=== PATIENT | male | born 1995 | race Caucasian/White ===

== ENCOUNTER 2020-08-30 02:30 | Emergency (ER) | payer OTHER ==
[~2020-08-30] VITALS: Ht 172.7 cm; Wt 101.5 kg
--- NOTE | 2020-08-30 02:34 | PHYS DOC ---
Past History Past Medical History Compartment syndrome Lt ankle age 17- post fx General Adult HPI: HPI: ".. I woke up with this severe pain... down here on the right... I felt like i wanted to vomit.. but didnt.. It comes on in waves.. " Patient is a 25 year old male who presents with above hx and complaints of Rt. lower quadrant abdomen pailn and nausea. Pt. seen on arrival. Patient has not had pain like this before. Pain seems to come in waves and radiates to his right testicle area. Pain 8-10/10. No history of trauma. No history of fever or chills. No history of bad food. Did eat Ramen noodles before he went to bed at approximately 2300 hrs. Did have normal stool yesterday. Patient normally healthy. No history of abdomen surgeries. No history of dark or tarry stools. Has had some constipation. 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 Patient has had no recent travel. Has had no specific ill contacts. No history immuno suppression. No history of STDs. No history of dysuria. No history of localized muscular pain or trauma. Has had 7 lifetime sexual partners. No recent sexual partners last couple years. There is a family history of kidney stones with his mother who is a nurse. Mother had her lst kidney stone at age 26. There is a family history of diabetes and alcohol abuse with his father.. There is family history of cancer. Pt. does not smoke our use drugs. Review of Systems: Review of Systems: Constitutional: Denies fever or chills Eyes: Denies change in visual acuity HENT: Denies nasal congestion or sore throat Respiratory: Denies cough or shortness of breath Cardiovascular: Denies chest pain or edema GI: Complains of severe right lower quadrant abdominal pain, nausea,. Denies vomiting, bloody stools or diarrhea : Denies dysuria Musculoskeletal: Denies back pain or joint pain Integument: Denies rash Neurologic: Denies headache, focal weakness or sensory changes Endocrine: Denies polyuria or polydipsia Lymphatic: Denies swollen glands Psychiatric: Denies depression or anxiety Family History: Family History: Kidney stones x3 on mother, history of alcohol abuse and diabetes with father. Current Medications: Current Meds: See nursing for home meds Allergies: Allergies: No known drug allergies. Physical Exam: PE: Constitutional: Well developed, well nourished, in acute distress, non-toxic appearance. [] HENT: Normocephalic, atraumatic, bilateral external ears normal, oropharynx moist, no oral exudates, nose normal. [] Eyes: PERRLA, EOMI, conjunctiva normal, no discharge. [] Neck: Normal range of motion, no tenderness, supple, no stridor. [] Cardiovascular: Tachycardia heart rate regular rhythm, no murmur [] Lungs & Thorax: Bilateral breath sounds equal apex on auscultation [] Abdomen: Bowel sounds decreased, soft, right lower quadrant abdomen tenderness, no masses, no pulsatile masses. Rebound to right lower quadrant abdomen. Circumcised male. Testicles nontender. Skin: Warm, dry, no erythema, no rash. Multiple tattoos. Back: No tenderness, some right flank CVA tenderness on percussion radiates to Rt. lower quadrant. Extremities: No tenderness, no cyanosis, no clubbing, ROM intact, no edema. [] Does have a psoas sign on right with movement and heel tap. Deformed Lt. ankle old fx and hx compartment syndrome. Neurologic: Alert and oriented X 3, normal motor function, normal sensory function, no focal deficits noted. [] Psychologic: Affect anxious, judgement normal, mood normal. [] EKG: EKG: My interpretation of EKG -sinus rhythm at 88 bpm. No acute morphology [] Radiology/Procedures: Radiology/Procedures: [[address] [address] IMAGING REPORT Signed PATIENT: KATY CHAMORRO ACCOUNT: [id number] : 1995 LOCATION: ER AGE: 25 SEX: M EXAM STATUS: REG ER ORD. PHYSICIAN: ZAYRA BAZAN MD REASON: Rt. lower abd. pain. PROCEDURE: CT ABDOMEN PELVIS WO CONTRAST CT scan abdomen and pelvis without contrast 08/30/2020 CLINICAL HISTORY: Right-sided abdominal pain. TECHNIQUE: Unenhanced, contiguous, 3 mm axial sections were obtained to the abdomen and pelvis. One or more of the following individualized dose reduction techniques were utilized for this study: 1. Automated exposure control. 2. Adjustment of the mA and/or kV according to patient size. 3. Use of iterative reconstruction technique. FINDINGS: Images through the lung bases are within normal limits. The liver, spleen, pancreas, adrenal glands and kidneys are within normal limits. The abdominal aorta tapers normally. The gallbladder is well-distended. No free fluid or free air is seen within the abdomen. Air and stool are seen throughout the colon. There is no evidence of bowel obstruction. The appendix is dilated measuring 9 mm in thickness. It has a thickened wall. Increased density is seen within the adjacent fat. These findings are consistent with acute appendicitis. No abnormal fluid collection is seen to suggest evidence of an abscess. Images through the pelvis demonstrate the urinary bladder distended with urine. A minimal amount of free fluid is seen within the pelvis. No abnormal fluid collection is seen. Minimal S-shaped curvature of the thoracolumbar spine is noted. IMPRESSION: Findings are seen consistent with acute appendicitis. Electronically signed by: Myles Webb MD (08/30/2020 4:12 AM) [id number] DICTATED AND SIGNED BY: MYLES WEBB MD DATE: 08/30/20407 CC: ZAYRA BAZAN MD; PCP,NO ~MTH0 0 ][place] [address] IMAGING REPORT Signed PATIENT: KATY CHAMORRO ACCOUNT: [id number] : 1995 LOCATION: ER AGE: 25 SEX: M EXAM STATUS: REG ER ORD. PHYSICIAN: ZAYRA BAZAN MD REASON: pain PROCEDURE: ACUTE ABDOMEN SERIES Acute abdominal series to include a PA chest radiograph 08/30/2020 Clinical History: Abdominal pain. A PA digital radiograph of the chest was obtained. Supine and erect AP digital radiographs of the abdomen/pelvis were obtained. No previous studies are available for comparison. The cardiac and mediastinal silhouettes are within normal limits in size and configuration. No pulmonary infiltrate is seen. No pleural effusion or pneumothorax is noted. The abdominal bowel gas pattern is nonobstructive. There is no evidence of free air. No radiopaque calculus is seen. The osseous structures are grossly intact. Impression: Nonobstructive bowel gas pattern. Electronically signed by: Myles Webb MD (08/30/2020 3:52 AM) [id number] DICTATED AND SIGNED BY: MYLES WEBB MD DATE: 08/30/20 035 CC: ZAYRA BAZAN MD; PCP,NO ~MTH0 0 Heart Score: HEART Score for Chest Pain: HEART Score for Chest Pain Response (Comments) Value History Slighlty/Non-Suspicious 0 ECG Normal 0 Age < 45 0 Risk Factors No Risk Factors 0 Total 0 Risk Factors: Risk Factors: DM, Current or recent (<one month) smoker, HTN, HLP, family history of CAD, obesity. Risk Scores: Score 0 - 3: 2.5% MACE over next 6 weeks - Discharge Home Score 4 - 6: 20.3% MACE over next 6 weeks - Admit for Clinical Observation Score 7 - 10: 72.7% MACE over next 6 weeks - Early Invasive Strategies Course & Med Decision Making: Course & Med Decision Making Pertinent Labs and Imaging studies reviewed. (See chart for details) Patient advised his medical condition can be discussed with his mother. [phone]. Pt. refusing narcotics for pain. Pt. report complete relief of pain after fluids and toradol. 350hrs. Pt. return of pain at 4:20 hrs. rates 5/10. Will take Morphine now. Discussed presentation, testing and tx plan with Dr. Ribeiro and Dr. Mills. Dr. Ribeiro - accepting. Dr. Mills consult. Pt. to go to room # 426 [facility]. COVID tested order for surgery- lab notification.. Nursing at [facility] advised not to collect at our institution, they will collect it at [facility]. Impression: 1. Abdomen Pain 2. Mild Leukocytosis 11.9 3. Acute Appendicitis [] Dragon Disclaimer: Dragon Disclaimer: This electronic medical record was generated, in whole or in part, using a voice recognition dictation system. Departure Departure: Referrals: PCP,ASHLEY (PCP) [place] Disclaimer This chart was dictated in whole or in part using Voice Recognition software in a busy, high-work load, and often noisy Emergency Department environment. It may contain unintended and wholly unrecognized errors or omissions. ZAYRA BAZAN MD Aug 30, 2020 02:34
[2020-08-30] MEDS ORDERED: FAMOTIDINE 20 MG/2 ML VIAL IVP ONE (03:00)
[2020-08-30] MEDS ORDERED: ONDANSETRON PF 4 MG/2 ML VIAL. IVP ONE (03:00)
[2020-08-30] MEDS ORDERED: IV RINGERS SOLUTION,LACTATED 1,000 ML IV SCH (03:00)
[2020-08-30] MEDS ORDERED: KETOROLAC 30 MG/ML VIAL. IVP ONE (03:00)
[2020-08-30 03:09] LABS: BASO % 0 % (0-3); EOS % 0 % (0-3); HEMATOCRIT 45.8 % (39.0-53.0); LYMPH # 0.9 x10^3/uL (1.0-4.8); LYMPH % 8 % (24-48); MEAN CORPUSCULAR HEMOGLOBIN 25 pg (25-35); MEAN CORPUSCULAR HGB CONC 33 g/dL (31-37); MEAN CORPUSCULAR VOLUME 77 fL (79-100); MONO # 0.1 x10^3/uL (0.0-1.1); MONO % 1 % (0-9); NEUT # 10.7 x10^3uL (1.8-7.7); NEUT % 90 % (31-73); PLATELET COUNT 241 x10^3/uL (140-400); RED BLOOD COUNT 5.93 x10^6/uL (4.30-5.70); RED CELL DISTRIBUTION WIDTH 13.3 % (11.5-14.5); WHITE BLOOD COUNT 11.9 x10^3/uL (4.0-11.0)
[2020-08-30 03:21] LABS: BACTERIA,URINE 0 /HPF (0-FEW); BILIRUBIN,URINE NEG (NEG); CLARITY,URINE CLEAR; COLOR,URINE YELLOW; GLUCOSE,URINE NEG (NEG); NITRITE,URINE NEG (NEG); RBC,URINE RARE /HPF (0-2); SQUAMOUS EPITHELIAL CELL,UR OCC /LPF; UROBILINOGEN,URINE 0.2 mg/dL (0.2 mg/dL); WBC,URINE RARE /HPF (0-4)
[2020-08-30 03:21] LABS: CALCIUM 8.9 mg/dL (8.5-10.1); CREATININE 1.1 mg/dL (0.7-1.3); GFR 81.6; POTASSIUM 3.6 mmol/L (3.5-5.1)
[2020-08-30 03:22] LABS: BARBITURATES NEG (NEG); BENZODIAZEPINES NEG (NEG); CANNABINOIDS NEG (NEG); COCAINE NEG (NEG); METHADONE NEG (NEG); OPIATES NEG (NEG); PHENCYCLIDINE NEG (NEG)
[2020-08-30 03:24] LABS: AMPHETAMINE/METHAMPHETAMINE NEG (NEG)
[2020-08-30 03:27] LABS: ALBUMIN 3.9 g/dL (3.4-5.0); DIRECT BILIRUBIN 0.2 mg/dL (0.0-0.2); TOTAL BILIRUBIN 0.6 mg/dL (0.2-1.0); TOTAL PROTEIN 7.9 g/dL (6.4-8.2)
--- NOTE | 2020-08-30 03:54 | RAD ---
Acute abdominal series to include a PA chest radiograph 08/30/2020 Clinical History: Abdominal pain. A PA digital radiograph of the chest was obtained. Supine and erect AP digital radiographs of the abd omen/pelvis were obtained. No previous studies are available for comparison. The cardiac and mediastinal silhouettes are within normal limits in size and configuration. No pulmon yadi infiltrate is seen. No pleural effusion or pneumothorax is noted. The abdominal bowel gas pattern is nonobstructive. There is no evidence of free air. No radiopaque ca lculus is seen. The osseous structures are grossly intact. Impression: Nonobstructive bowel gas pattern. Electronically signed by: Myles Webb MD (08/30/2020 3:52 AM) [id number]
[2020-08-30] MEDS ORDERED: IV NORMAL SALINE 50ML 50 ML ONE (04:15)
[2020-08-30] MEDS ORDERED: cefTRIAXone SODIUM 1 GM VIAL ONE (04:15)
--- NOTE | 2020-08-30 04:15 | RAD ---
CT scan abdomen and pelvis without contrast 08/30/2020 CLINICAL HISTORY: Right-sided abdominal pain. TECHNIQUE: Unenhanced, contiguous, 3 mm axial sections were obtained to the abdomen and pelvis. One or more of the following individualized dose reduction techniques were utilized for this study: 1. Automated exposure control. 2. Adjustment of the mA and/or kV according to patient size. 3. Use of iterative reconstruction technique. FINDINGS: Images through the lung bases are within normal limits. The liver, spleen, pancreas, adrenal glands and kidneys are within normal limits. The abdominal aorta tapers normally. The gallbladder is well-distended. No free fluid or free air is seen within the abdomen. Air and stool are seen throughout the colon. There is no evidence of bowel o bstruction. The appendix is dilated measuring 9 mm in thickness. It has a thickened wall. Increased density is se en within the adjacent fat. These findings are consistent with acute appendicitis. No abnormal fluid collection is seen to suggest evidence of an abscess. Images through the pelvis demonstrate the urinary bladder distended with urine. A minimal amount of f ree fluid is seen within the pelvis. No abnormal fluid collection is seen. Minimal S-shaped curvature of the thoracolumbar spine is noted. IMPRESSION: Findings are seen consistent with acute appendicitis. Electronically signed by: Myles Webb MD (08/30/2020 4:12 AM) [place] [id number]
[2020-08-30] MEDS ORDERED: MORPHINE SULFATE 10 MG/ML SYRINGE. SQ ONE (04:30)
[2020-08-30 05:10] VITALS: BP 122/70
--- NOTE | 2020-08-30 06:23 | EKG ---
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
== END 2020-08-30 05:18 | disposition short-term general hospital (02) ==
LOC: ER 02:30
DX: K35.80 Unspecified acute appendicitis (principal); D72.829 Elevated white blood cell count, unspecified; Z87.442 Personal history of urinary calculi
CPT/HCPCS: 36415; 74022; 74176; 80048; 80076; 80307; 81001; 82150; 82550; 83605; 83690; 85025; 85610; 85730; 93005; 96361; 96365; 96368; 96372; 96375; 99285; J0696; J1885; J2270; J2405; J3490; J7120; 96367